=== PATIENT | female | born 1985 | race Hispanic/Latino ===

== ENCOUNTER 2017-04-17 11:40 | Day surgery (SDC) | payer OTHER ==
[~2017-04-17] VITALS: Ht 168.9 cm; Wt 104.1 kg
[2017-04-17] VITALS (8 sets, daily range): BP systolic 106–148; BP diastolic 50–85; PULSE 76–93; RESP 11–20; O2SAT 96–99
[~2017-04-17 11:40] MED LIST: ALBU8.5H2 INHALATION; MIRENA IUD VAGINAL
[2017-04-17] MEDS ORDERED: Dexamethasone 4 mg/mL Inj ONE (11:41)
[2017-04-17] MEDS ORDERED: Ketamine 10 mg/mL 20 mL Inj ONE (11:41)
[2017-04-17] MEDS ORDERED: Ondansetron 2 mg/mL 2 mL Inj ONE (11:41)
[2017-04-17] MEDS ORDERED: Propofol 10,000 mCg/mL 20 mL Inj ONE (11:41)
[2017-04-17] MEDS ORDERED: MetoCLOpramide 5 mg/mL 2 mL Inj ONE (11:41)
[2017-04-17] MEDS ORDERED: Lactated Ringer's 1,000 ML IV ONE (11:45)
--- NOTE | 2017-04-17 12:36 | PCM.HPANE ---
Patient Data Surgeon Admitting Provider: Attending Provider:Caryn Dodge MD Primary Care Physician:Lucinda Mac Other Provider:Bushra Chapa Anesthesia Reason for Visit Unsuccessful Attempt To Remove Iud Ht/WT & BMI Height (Feet): 5 Height (Inches): 6.5 Weight (Kilograms): 104.1 Body Mass Index 36.00 Allergies Coded Allergies: No Known Allergies (Verified , 04/17/17) Past Anesthesia History Anesthesia History: Denies:: Abnormal Airway, Anesthesia Reactions, Difficult Intubation, Fam Anesthesia Reaction, Fam Malignant Hypertherm, Malignant Hyperthermia Diabetes History Hx Diabetes?: No MRSA MRSA: No Medications Home Meds Incl Beta Jewel: No Reported Medications [Mirena Iud] No Conflict Check Vaginal 20MCG/24H 04/16/17 Albuterol HFA (Proair HFA)8.5 Gm Hfa.aer.ad2 Puffs INHALATION Q4H PRN PRN #1 INHALER 04/16/17 History History of ENT Problems?: No HEENT History: Denies:: Abnormal Airway Cataracts Difficult Intubation Dysphagia Glaucoma Hearing Problem Sinus Problem TMJ Denture Type: None Teeth Condition: Within Normal Limits Hx of Heart Problems?: Yes Cardiovascular History: Denies:: Heart Murmur Hypertension (HYPERLIPIDEMIA) Hx of Respiratory Problem?: Yes Respiratory History: Positive for:: Cough (PERSISTANT/TX W/ COURSE OF ABX/CXR CLEAR) Use of Inhalers / NEBS (FOR COUGH/SLIGHT HOARSENESS) Denies:: Use of C-PAP Machine Hx Neurologic Problems?: Yes Neurological History: Positive for:: Headaches Hx of GI Problems?: No Hx of Problems?: No Female Hx: Denies:: Currently Skin History: Denies:: History Skin Disorders? Pressure Ulcers Hx Musculoskeletal Problems?: No Hx of Psycho/Social Problems?: No Hx Surgeries?: No Hx Any Other Health Problems?: No Other History: Positive for:: Hospitalization (CHILDBIRTH) Denies:: Cancer Thyroid Disease Hx Diabetes: No Have You Smoked inLast 12 mo: No Stop/Bang Treated for Sleep Apnea?: No Do You Have a CPAP Machine?: No S-Snoring: Do You Snore Loudly: No T-Tired: feel tired, fatigued: Yes O-Obsered: Observed not breath: No P-Blood Pressure: treated: No B- Body Mass Index > 35 kg/m2: Yes A- Age over 50: No N- Neck Large Circumference: Yes G- Gender Male: No WENDY Total Score: 3 WENDY Risk Assessment: Low Risk, <3 Yes Risk Assessment Category Category 1A: Patient has history of documented sleep apnea, and HAS NOT received any narcotic, sedative or anesthesia administration during this stay. Category 1B: Patient has history of documented sleep apnea, and HAS received any narcotic , sedative or anesthesia administration during this stay Category 2: Patient has SUSPECTED Obstructive Sleep Apnea, and HAS received any narcotic , sedative or anesthesia administration during this stay. Category 3: Patient has SUSPECTED Obstructive Sleep Apnea and HAS NOT received narcotic, sedative or anesthesia administration during this stay. Category 4: Outpatient in Procedural Areas with known sleep apnea or who screen positive for High Risk via the STOP/BANG questionnaire. Exam Exam Vital Signs Vital Signs Date Time Temp Pulse Resp B/P Pulse Ox O2 Delivery O2 Flow Rate FiO2 04/17/17 12:00 36.6 84 16 148/82 99 Room Air General Appearance: Oriented X3 HEENT/AIRWAY: MP 2 Lungs: Normal Air Movement Heart: Regular Rate/Rhythm Meds/Labs/Diagnostics Admission Meds Current Medications Lactated Ringer's (Lr) 1,000 ml @ ud STK-MED ONCE IV Last administered on t 11:45; Start 04/17/17 at 11:45; Stop 04/17/17 at 11:46; Status DC Plan Impression Patient chart reviewed, patient interviewed and anesthestic plan with risks, benefits, and alternatives discussed, and informed consent obtained. ASA Physical Status: ASA2 Mod Systemic Disease Anesthetic Plan: GA Bene/Risks/Altern/Consents: Yes HP Complete Prior to Induction: Yes Major Escalera MD Apr 17, 2017 12:36
[2017-04-17] MEDS ORDERED: Lactated Ringer's 1,000 ML IV SCH (13:03)
[2017-04-17] MEDS ORDERED: Lactated Ringer's 500 ML IV PRN (13:03)
[2017-04-17] MEDS ORDERED: Labetalol 5 mg/mL 4 mL Inj IV PRN (13:05)
[2017-04-17] MEDS ORDERED: Ondansetron 2 mg/mL 2 mL Inj IVPUSH PRN ×2 (13:05→14:10)
[2017-04-17] MEDS ORDERED: MetoCLOpramide 5 mg/mL 2 mL Inj IVPUSH PRN ×2 (13:05→14:10)
[2017-04-17] MEDS ORDERED: Dexamethasone 4 mg/mL Inj IVPUSH PRN (13:05)
[2017-04-17] MEDS ORDERED: Phenylephrine 10,000 mCg/mL Inj IVPUSH PRN (13:05)
[2017-04-17] MEDS ORDERED: EPHEDrine Sulfate 50 mg/mL Inj IVPUSH PRN (13:05)
[2017-04-17] MEDS ORDERED: HYDROmorphone 1 mg/mL Inj IVPUSH PRN ×2 (13:05→14:10)
--- NOTE | 2017-04-17 13:42 | PCM.DIGYN ---
Surgical Discharge Instruction Dates of Hospitalization Date of Hospital Admission Providers Admitting Physician: Primary Care Physician: Lucinda Mac Attending Physician: Caryn Dodge MD Diet Discharge Diet: No restrictions Activity Discharge Activity-General: Balance rest and activity, Activity as energy allows, No lifting >15 pounds for 2 weeks, No driving while taking narcotic Dressing and Incisional Care Hygiene: May shower, NO bathtub, hot tub or whirlpool Additional Instructions Discharge Instructions Please call with any signs or symptoms of infection including fever >100.5 degrees, severe pain, malodorous vaginal discharge or bleeding more than a pad per hour. Your IUD removal was uncomplicated. You should expect light bleeding and watery discharge for 2-4 weeks following the procedure Follow Up Plan Follow-up appointment: Weeks (2) Call your provider for: Fever, Chills, Shortness of breath, Heavy vaginal bleeding, Increasing pain Caryn Dodge MD Apr 17, 2017 13:42
[2017-04-17] MEDS: fentaNYL-PF 50 mCg/mL 2 mL Inj IVPUSH PRN ×2 (13:48→14:01)
[2017-04-17] MEDS ORDERED: oxyCODONE-Acetamin 5-325 mg Tablet PO PRN (14:10)
[2017-04-17] MEDS ORDERED: diphenhydrAMINE 25 mg Capsule PO PRN (14:10)
--- NOTE | 2017-04-18 07:44 | OP ---
[address] [address] OPERATIVE REPORT PATIENT: PAT HINOJOSA : 1985 MR#: [id number] ADMIT: 04/17/2017 JOB ID: [id number] DATE OF SURGERY: 04/17/2017 PREOPERATIVE DIAGNOSIS(ES): Retained intrauterine device. POSTOPERATIVE DIAGNOSIS(ES): Retained intrauterine device. PROCEDURE PERFORMED: 1. Hysteroscopy. 2. Intrauterine device removal. SURGEON: Caryn Dodge MD. FREIGHT RECEIVER: None. ANESTHESIA: General anesthetic. ESTIMATED BLOOD LOSS: 5 cc. FLUID REPLACEMENT: 750 cc of crystalloid. URINE OUTPUT: Straight catheterized at the start of the procedure for 30 cc. FLUID DEFICIT: 100 cc. FINDINGS: Normal appearing intrauterine cavity. Retained Mirena IUD. COMPLICATIONS: None apparent. INDICATIONS: This is a 31-year-old female, who presented to our clinic with a retained IUD. She had seen several care providers prior to seeing me and had multiple attempts at IUD removal in the office. At her previous visit with our nurse practitioner, uterine perforation occurred, and I elected to proceed with ultrasound-guided IUD removal in office. When this was not successful, she was then referred to undergo surgery with IUD removal. The risks, benefits and alternatives were discussed with her prior to proceeding, and she elected to move forward with this. DESCRIPTION OF PROCEDURE: The patient was taken to the operating room. She was administered anesthesia, placed in dorsal lithotomy position, prepped and draped in the usual fashion for the procedure. Her cervix was then grasped with a tenaculum, and she was serially dilated to allow a size 8 Hegar dilator. The hysteroscope was then inserted and the uterine cavity was visualized. Her IUD was noted to be within the mid plane of the uterine cavity and so, the alligator forceps was brought through the operative channel. The IUD was grasped, and this was brought back into the hysteroscope. The hysteroscope was then removed from the uterine cavity, and the IUD was located at the entrance to the operative channel. This was then removed. The hysteroscope was then placed back into the uterine cavity, and her endometrial lining was noted to be moderately thin. Her ostia were normal bilaterally. The hysteroscope was then removed. The tenaculum was removed from the cervix, and her tenaculum sites were rendered hemostatic using silver nitrate. She tolerated this procedure well. Recovered in PACU. All sponge, needle and instrument counts were correct. She will be discharged home the same day with ibuprofen and Percocet for pain control.
--- NOTE | 2017-04-18 12:28 | PCM.ANEP1 ---
Post Anesthesia PACU Phase 1 Assessment Anesthetic Administered: GA Level of Alertness: Awake, talking Pain: No Nausea or Vomiting: No CV Function & Hydration Stable: Yes Airway Device: Lungs: Normal Air Movement PACU Phase 2 Assessment Patient Instructions Provided: N/A Major Escalera MD Apr 18, 2017 12:27
== END 2017-04-17 23:59 | disposition home or self-care (01) ==
LOC: SAS 11:40
PROVIDERS: ATTEND Obstetrics & Gynecology
PROC: 0UPD8HZ Removal of Contraceptive Device from Uterus and Cervix, Via Natural or Artificial Opening Endoscopic (ICD-10-PCS; principal; 2017-04-17 14:15)
DX: Z30.432 Encounter for removal of intrauterine contraceptive device (principal); Z53.8 Procedure and treatment not carried out for other reasons
CPT/HCPCS: 58562; J1100; J1170; J2250; J2405; J2765; J3010; J7120